=== PATIENT | male | born 1980 | race Caucasian/White ===

== ENCOUNTER 2016-12-14 19:07 | Emergency (ER) | payer MEDICAID ==
[~2016-12-14] VITALS: Ht 170.2 cm; Wt 80.7 kg
[~2016-12-14 19:07] MED LIST: ALBUTEROL MDI
[2016-12-14] MEDS ORDERED: ALBUTEROL/IPRATROPIUM 2.5MG/0.5MG, 3 ML NPPB ONE (19:30)
[2016-12-14 20:34] VITALS: BP 131/86
== END 2016-12-14 20:36 | disposition home or self-care (01) ==
LOC: ED 19:44
DX: J45.42 Moderate persistent asthma with status asthmaticus (principal)
CPT/HCPCS: 93005; 94640; 99283; J7512; J7620